=== PATIENT | male | born 1965 | race Caucasian/White ===

== ENCOUNTER 2017-12-19 11:16 | Emergency (ER) | payer BC ==
[2017-12-19 11:53] LABS: ABS Basophils 0 10^3/ul (0-0.2); ABS Eosinophils 0 10^3/ul (0-0.6); ABS Lymphocytes 1.2 10^3/ul (1.0-4.8); ABS Monocytes 0.6 10^3/ul (0-0.8); ABS Neutrophils 10.5 10^3/ul (1.5-7.7); ABS Nucleated RBC 0 10^3/ul; Eosinophil % 0.2 % (0-6); Hematocrit 50 % (42-52); Hemoglobin 17.3 g/dl (14.0-18.0); Lymphocyte % 9.5 % (25-47); Mean Corpuscular HGB Conc 34 g/dl (31-36); Mean Corpuscular Hemoglobin 31 pg (27-31); Mean Corpuscular Volume 89 fL (80-94); Mean Platelet Volume 9.5 um3 (7.4-10.4); Nucleated Red Blood Cells % 0; Platelet Count 179 10^3/ul (150-450); Red Blood Count 5.65 10^6/ul (4.00-5.40); Red Cell Distribution Width 14 % (10.5-15); White Blood Count 12.3 10^3/ul (3.5-10.8)
[2017-12-19 12:01] LABS: INR 0.95 (0.77-1.02)
[2017-12-19 12:11] LABS: EGFR Non-African American 78.8 (>60)
[2017-12-19] MEDS: NS 0.9% 1000 ML* 2,000 ML IV ONE ×2 (13:42→13:43)
[2017-12-19 15:56] VITALS: BP 128/83
--- NOTE | 2017-12-19 22:36 | ED ---
Qiana Villatoro Simon, scribed for Cindy Martínez MD on 12/19/17 at 1155 . Allergic Reaction/Systemic - HPI Summary HPI Summary: This patient is a 52 year old M presenting to [facility] with a chief complaint of allergic reaction to insect sting on back of neck at 0900 or 0930. Endorses dizziness, sat down due to dizziness. 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 He endorses 1x sting, diaphoresis, hypotension, tachycardia, mild CEJA posterior near insect sting. Pt denies CP, current dizziness. He endorses taking a 10 minute nap after incident which alleviated sx. He endorses being otherwise healthy. He notes taking cholesterol medication (PMHx HLD) but cannot recall the name, NKDA. - History of Current Complaint Chief Complaint: EDAllergicReaction Time Seen by Provider: 12/19/17 11:29 Hx Obtained From: Patient Onset/Duration: Sudden Onset, Started hours ago, Still Present Timing: Constant, Lasting Hours Severity Initially: Moderate Severity Currently: Moderate Pain Intensity: 3 Pain Scale Used: 0-10 Numeric Location: Diffuse Aggravating Factor(s): Other - insect sting Alleviating Factor(s): Other - sleep Associated Signs And Symptoms: Positive: Diaphoresis, Lightheadedness, Rash, Other: - tachycardia, hypotension. Negative: Chest Pain - Related Hx Possible Reaction To: Insect - Allergies/Home Medications Allergies/Adverse Reactions: Allergies Allergy/AdvReac Type Severity Reaction Status Date / Time No Known Allergies Allergy Verified 12/19/17 13:44 Home Medications: Home Medications Atorvastatin* [Lipitor 40 MG*] 40 mg PO DAILY 12/19/17 [History Confirmed ] PMH/Surg Hx/FS Hx/Imm Hx Endocrine/Hematology History: Denies: Other Endocrine/Hematological Disorders Cardiovascular History: Reports: Hx Hypercholesterolemia Respiratory History: Denies: Other Respiratory Problems/Disorders Musculoskeletal History: Reports: Hx of Fracture(s) - nose Sensory History: Denies: Hx Contacts or Glasses, Hx Legally Blind, Hx Deafness Opthamlomology History: Denies: Hx Contacts or Glasses, Hx Legally Blind EENT History: Denies: Hx Deafness - Surgical History Surgery Procedure, Year, and Place: nasal surgery Infectious Disease History: No Infectious Disease History: Denies: Traveled Outside the [place] in Last 30 Days - Family History Known Family History: Positive: Other - "hole in heart" - Social History Alcohol Use: None Hx Substance Use: No Substance Use Type: Reports: None Hx Tobacco Use: Yes Smoking Status (MU): Former Smoker Type: Pipe Review of Systems Positive: Skin Diaphoresis. Negative: Fever Negative: Chest Pain Positive: Rash, Other - insect sting back of neck Neurological: Other - dizziness Positive: Headache All Other Systems Reviewed And Are Negative: Yes Physical Exam - Summary Physical Exam Summary: Appearance: ill-appearing, no pain distress, well-nourished Skin: Warm, color reflects adequate perfusion, dry, total body urticaria, bee sting site left posterior neck Head: Normal Head/Face inspection, atraumatic Eyes: Conjunctiva clear ENT: Normal inspection, no pharygeal edema, no uvula edema Neck: Supple, no nodes, no JVD Respiratory: Lungs clear, normal breath sounds, no respiratory distress Cardio: RRR, No murmur, pulses normal, brisk capillary refill Abdomen: Soft, nontender Bowel sounds: Present Musculoskeletal: Strength Intact/ROM intact, no calf tenderness, no edema. Psychological: Normal Neuro: Alert, muscle tone normal, no focal deficit Triage Information Reviewed: Yes Vital Signs On Initial Exam: Initial Vitals Temp Pulse Resp BP Pulse Ox 98.3 F 87 19 108/73 97 12/19/17 11:20 12/19/17 11:20 12/19/17 11:20 12/19/17 11:20 12/19/17 11:20 Vital Signs Reviewed: Yes Diagnostics - Vital Signs Vital Signs Temp Pulse Resp BP Pulse Ox 12/19/17 11:20 98.3 F 87 19 108/73 97 - Laboratory Result Diagrams: 12/19/17 11:41 12/19/17 11:41 Lab Statement: Any lab studies that have been ordered have been reviewed, and results considered in the medical decision making process. - EKG 1156 Cardiac Rate: NL - 78 EKG Rhythm: Sinus Rhythm Ectopy: None EKG Interpretation: nl AVIVCT, nl QTc, left axis (-39), no acute changes, no prior to compare. Re-Evaluation - Re-Evaluation First Eval Re-Evaluation Time: 15:03 Change: Improved Comment: tx for anaphylaxis, improved sx (no swelling in throat, no hives), discussed discharge. Allergic Reaction Course/Dx - Course Course Of Treatment: A 52-year-old M presents to the ED with a CC of rash from allergic reaction since 0900 or 0930. (+) 1x sting, dizziness, diaphoresis , tachycardia, hypotension, mild CEJA near sting. (-) CP, current dizziness. 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 An EKG reveals normal SR , nl AVIVCT, nl QTc, left axis (-39), no acute changes, no prior to compare. In the ED course, pt was given nl saline. Allergies noted, pt medications reviewed this visit. Lactic acid 2.4, aware at 1211. - Diagnoses Provider Diagnoses: Anaphylaxis, Lactic acid acidosis - Critical Care Time Critical Care Time: 30-74 min - 30, management of anaphylaxis. Discharge - Discharge Plan Condition: Stable Disposition: HOME Prescriptions: EPINEPHrine [Epipen] 0.3 mg IJ ONCE #1 auto.injct Famotidine TAB 40 MG(NF) [Pepcid TAB 40 MG(NF)] 40 mg PO DAILY #5 tab predniSONE TAB* [Deltasone 20 MG TAB*] 40 mg PO DAILY #10 tab Patient Education Materials: Anaphylaxis (ED) Forms: *Work Release Referrals: Phill Beltre MD [Primary Care Provider] - 2 Days Additional Instructions: Take benadryl (diphenhydramine) 50mg (2 over the counter tablets) every 6 hours for the next 48 hrs, and then as needed for hives or redness. Your next dose is at 6pm. Start the prescriptions for prednisone and famotidine tomorrow. They are at [facility]. You are allergic to beestings and need to carry an epipen with you at all times , and call 911 if you use the epipen or get stung again by a bee. Return to the ER if you have new or worsening symptoms. In the ER today you were given solumedrol 125mg IV, famotidine 40mg IV, benadryl 50mg IV and IV fluids. You had lactic acidosis from the beesting. - Billing Disposition and Condition Condition: STABLE Disposition: Home The documentation as recorded by the Qiana gomes Simon accurately reflects the service I personally performed and the decisions made by me, Cindy Martínez MD.
== END 2017-12-19 15:54 | disposition home or self-care (01) ==
LOC: ED 11:16
DX: T63.441A Toxic effect of venom of bees, accidental (unintentional), initial encounter (principal); T78.2XXA Anaphylactic shock, unspecified, initial encounter; R42 Dizziness and giddiness; R21 Rash and other nonspecific skin eruption; R00.0 Tachycardia, unspecified; I95.9 Hypotension, unspecified; R51 Headache; Y92.9 Unspecified place or not applicable; E78.00 Pure hypercholesterolemia, unspecified; E78.5 Hyperlipidemia, unspecified; E87.2 Acidosis; Z79.899 Other long term (current) drug therapy; Z87.891 Personal history of nicotine dependence
CPT/HCPCS: 36415; 80053; 82550; 83605; 83735; 84443; 84484; 85025; 85610; 93005; 99283